=== PATIENT | female | born 1960 | race Caucasian/White ===

== ENCOUNTER → 2022-09-21 | Outpatient (CLI) | payer OTHER | END | disposition home or self-care (01) | LOC: LABMN 12:43 | PROVIDERS: ATTEND Internal Medicine Cardiovascular Disease | DX: I67.82 Cerebral ischemia (principal); R90.82 White matter disease, unspecified; J32.4 Chronic pansinusitis; R29.818 Other symptoms and signs involving the nervous system | CPT/HCPCS: 70551 ==